=== PATIENT | female | born 1965 | race Caucasian/White ===

== ENCOUNTER 2021-04-01 05:00 | Emergency (ER) | payer MEDICARE, OTHER ==
[~2021-04-01] VITALS: Ht 160 cm; Wt 79.8 kg
--- NOTE | 2021-04-01 05:10 | NUR ---
pt bib ambulance for r/o shingles. pt a/o denies c/p or sob. pt able to ambulate to [facility] bed 2b without assist. pt a/o x3 able to speak in complete sentences.
--- NOTE | 2021-04-01 05:13 | NUR ---
Dr. Vargas at bedside for MSE.
[2021-04-01] MEDS ORDERED: HYDROMORPHONE 1 MG/1 ML DISP.SYRIN IM ONE (05:15)
[2021-04-01] MEDS ORDERED: ONDANSETRON ODT 4 MG TAB.RAPDIS SL ONE (05:15)
[2021-04-01] MEDS ORDERED: ACYCLOVIR 400 MG TABLET PO ONE (05:15)
[2021-04-01] MEDS ORDERED: HYDR-3980 PO (05:20)
[2021-04-01] MEDS ORDERED: ACYC-108 PO (05:20)
[2021-04-01] MEDS ORDERED: ONDA4TAB5 PO (05:20)
--- NOTE | 2021-04-01 05:25 | NUR ---
Called [facility] to transport patient back to [facility], eta 60-90 min ~ [phone]
[2021-04-01] MEDS ORDERED: ONDANSETRON ODT 4 MG TAB.RAPDIS ONE (05:29)
[2021-04-01] MEDS ORDERED: ACYCLOVIR 200 MG CAPSULE ONE (05:29)
[2021-04-01] MEDS ORDERED: HYDROMORPHONE 1 MG/1 ML DISP.SYRIN ONE (05:30)
--- NOTE | 2021-04-01 05:44 | NUR ---
call to [facility]. spoke with Abiodun, informed pt was treated and will be sent back eta of ambulance is approx 0630 to 0700.
--- NOTE | 2021-04-01 08:18 | NUR ---
PT WAS D/C'd TO HOME. D/C INSTRUCTIONS GIVEN TO THE PT. PT WAS TRANSFERED BACK TO HER NURSING FACILITY VIA S AMBULANCE.
[2021-04-01 08:21] VITALS: BP 136/82
== END 2021-04-01 08:22 ==
LOC: ER 05:15
DX: B02.9 Zoster without complications (principal); Z88.8 Allergy status to other drugs, medicaments and biological substances; Z88.0 Allergy status to penicillin; E11.9 Type 2 diabetes mellitus without complications; F03.91 Unspecified dementia, unspecified severity, with behavioral disturbance; F31.9 Bipolar disorder, unspecified; J44.9 Chronic obstructive pulmonary disease, unspecified; F25.9 Schizoaffective disorder, unspecified; E27.1 Primary adrenocortical insufficiency
CPT/HCPCS: 96372; 99283; J1170; A4663; Q0162

== ENCOUNTER 2021-04-02 21:27 | Emergency (ER) | payer MEDICARE, OTHER ==
[~2021-04-02] VITALS: Ht 160 cm; Wt 79.8 kg
[~2021-04-02 21:27] MED LIST: ACYC-108 PO; HYDR-3980 PO; ONDA4TAB5 PO
--- NOTE | 2021-04-02 21:50 | NUR ---
PT BIB [facility] UN[facility] FOR SINGLES X 1.5 WEEKS[facility]. PT A/O X3, NO SOB OR LABORED BREATHING, AFEBRILE. DENIES ANY CP/PRESSURE.
--- NOTE | 2021-04-02 22:05 | NUR ---
DR. BATRES AT BEDSIDE, MSE IN PROGRESS.
--- NOTE | 2021-04-02 22:40 | NUR ---
CALLED DR. PEDRO, DID NOT [employer]CHIT[employer] AND MAILBOX IS FULL.
--- NOTE | 2021-04-02 23:44 | NUR ---
CALLED [facility] GIVEN ETA OF 75-90 MINUTES. SPOKE WITH CHARGE NURSE ANGELICA FROM [facility], MADE AWARE THAT PT IS BEING DISCHARGED AND RETURNING TO THEIR FACILITY.
--- NOTE | 2021-04-03 00:46 | NUR ---
[facility] AT BEDSIDE TO TRANSFER PT BACK TO SNF.
--- NOTE | 2021-04-03 00:58 | NUR ---
Patient discharged to [facility] in stable condition. Written and verbal after care instructions given to patient and EMT and verbalizes understanding of instructions. Stressed follow up or return to ER for worsening s/s. No changes in LOC. Denies any pain upon discharge.
[2021-04-03 01:00] VITALS: BP 138/72
== END 2021-04-03 00:58 ==
LOC: ER 21:31
DX: B02.9 Zoster without complications (principal); E11.9 Type 2 diabetes mellitus without complications; F03.91 Unspecified dementia, unspecified severity, with behavioral disturbance; F31.9 Bipolar disorder, unspecified; J44.9 Chronic obstructive pulmonary disease, unspecified; F25.9 Schizoaffective disorder, unspecified; E27.1 Primary adrenocortical insufficiency; Z88.6 Allergy status to analgesic agent; Z88.1 Allergy status to other antibiotic agents; Z88.8 Allergy status to other drugs, medicaments and biological substances
CPT/HCPCS: A4663